=== PATIENT | male | born 1995 ===

== ENCOUNTER 2017-10-19 22:51 | Emergency (ER) | payer SELFPAY ==
[2017-10-19 23:06] VITALS: BP 114/81
--- NOTE | 2017-10-19 23:41 | XRay Report ---
FINAL REPORT PROCEDURE: XR HAND 2V RT TECHNIQUE: RIGHT hand radiographs, AP and lateral views. CPT 42479-JT HISTORY: laceration COMPARISON: No prior studies are available for comparison. FINDINGS: Fracture (s) and/or Dislocation(s): None . Alignment: Normal . Joint space(s): Normal . Soft tissues: Mild soft tissue swelling the index finger.. Bone mineralization: Normal . Foreign bodies: None . IMPRESSION: No acute fracture or dislocation. Soft tissue swelling over the index finger is noted..
[2017-10-20 01:02] LABS: Basophils # (Auto) 0.1 K/mm3 (0.0-0.1); Basophils % (Auto) 0.6 % (0.0-1.8); Eosinophils % (Auto) 0.3 % (0.0-4.3); Hematocrit 49.1 % (35.5-45.6); Hemoglobin 16.8 gm/dl (11.8-15.2); Lymphocytes # (Auto) 2.5 K/mm3 (1.2-5.4); Lymphocytes % (Auto) 25.8 % (13.4-35.0); Mean Corpuscular HGB Conc 34 % (32-34); Mean Corpuscular Hemoglobin 31 pg (28-32); Mean Corpuscular Volume 91 fl (84-94); Monocytes # (Auto) 0.8 K/mm3 (0.0-0.8); Platelet Count 301 K/mm3 (140-440); Red Blood Count 5.43 M/mm3 (3.65-5.03); Red Cell Distribution Width 13.7 % (13.2-15.2)
[2017-10-20 01:21] LABS: BUN/Creatinine Ratio 12; Blood Urea Nitrogen 14 mg/dL (9-20); Calcium 10.3 mg/dL (8.4-10.2); Hemolysis Index 20
[2017-10-20] MEDS ORDERED: XYLOCAINE 1% 20 mL INFILTRATI ONE (02:13)
--- NOTE | 2017-10-20 02:19 | Emergency Department Report ---
ED Upper Extremity Inj HPI - General Chief Complaint: Extremity Injury, Upper Stated Complaint: CUT FINGER Time Seen by Provider: 10/20/17 00:46 Source: patient Mode of arrival: Ambulatory Limitations: No Limitations - History of Present Illness Initial Comments: 22-year-old male with no significant past medical history presents to the hospital with complaint of laceration to right index finger. Patient is right- hand dominant. He was cutting a piece of wood with a sharp knife. Knife slipped and he sustained a laceration to his index finger. Patient had a syncopal episode after the laceration and thinks she lost a lot of blood. He complains of 9/10 right hand pain at this time. He denies chest pain, shortness of breath, neck pain, or headache. - Related Data Allergies Allergy/AdvReac Type Severity Reaction Status Date / Time No Known Allergies Allergy Unverified 10/19/17 23:05 ED Review of Systems ROS: Stated complaint: CUT FINGER Other details as noted in HPI Comment: All other systems reviewed and negative ED Past Medical Hx - Past Medical History Previous Medical History?: No - Surgical History Past Surgical History?: No - Social History Smoking Status: Never Smoker Substance Use Type: None ED Physical Exam - General Limitations: No Limitations - Other Other exam information: General: No limitations Head exam: Atraumatic, normocephalic Eyes exam: Normal appearance, pupils equal reactive to light, extraocular movements intact ENT: Moist mucous membrane Neck exam: Normal inspection, full range of motion, no meningismus nontender Respiratory exam: Clear to auscultation bilateral, no wheezes, rales, crackles Cardiovascular: Normal rate and rhythm, normal heart sounds Abdomen: Soft, nondistended, and nontender, with normal bowel sounds, no rebound, or guarding Extremity: Pressure bandage to index finger of right hand Back: Normal Inspection, full range of motion, no tenderness Neurologic: Alert, oriented x3, cranial nerves intact, no motor or sensory deficit Psychiatric: normal affect, normal mood Skin: Warm, dry, intact ED Course Vital Signs 10/19/17 23:02 Temperature 98.7 F Pulse Rate 75 Respiratory 17 Rate Blood Pressure 114/81 O2 Sat by Pulse 99 Oximetry - Reevaluation(s) Reevaluation #1: 10/20/17 02:23 When I initially saw and evaluated patient and I informed him that I was waiting for his labs and x-ray results to come back and the plan was to have my physician dairy and food laboratory assistant suture the finger. I did not unwrap the finger to fully evaluated it because this he had a adequate pressure bandage. Plan was to a unwrap with the PAs so that it could be examined and sutured at the same time in case it began to bleed again. At this time the way into the ROM and patient is no longer there. I examined demographic information in a computer an effort to call patient to the hospital but there is not a valid phone number listed. Patient did not inform staff or nurse that he was leaving and he eloped from the department. ED Medical Decision Making - Lab Data Result diagrams: 10/20/17 00:47 10/20/17 00:47 Lab Results 10/20/17 10/20/17 Range/Units 00:47 00:47 WBC 9.5 (4.5-11.0) K/mm3 RBC 5.43 H (3.65-5.03) M/mm3 Hgb 16.8 H (11.8-15.2) gm/dl Hct 49.1 H (35.5-45.6) % MCV 91 (84-94) fl MCH 31 (28-32) pg MCHC 34 (32-34) % RDW 13.7 (13.2-15.2) % Plt Count 301 (140-440) K/mm3 Lymph % (Auto) 25.8 (13.4-35.0) % [place] % (Auto) 8.0 H (0.0-7.3) % Eos % (Auto) 0.3 (0.0-4.3) % Baso % (Auto) 0.6 (0.0-1.8) % Lymph # 2.5 (1.2-5.4) K/mm3 [place] # 0.8 (0.0-0.8) K/mm3 Eos # 0.0 (0.0-0.4) K/mm3 Baso # 0.1 (0.0-0.1) K/mm3 Seg Neutrophils % 65.3 (40.0-70.0) % Seg Neutrophils # 6.2 (1.8-7.7) K/mm3 Sodium 142 (137-145) mmol/L Potassium 4.6 (3.6-5.0) mmol/L Chloride 101.4 (98-107) mmol/L Carbon Dioxide 28 (22-30) mmol/L Anion Gap 17 mmol/L BUN 14 (9-20) mg/dL Creatinine 1.2 (0.8-1.5) mg/dL Estimated GFR > 60 ml/min BUN/Creatinine Ratio 12 % Glucose 93 (75-100) mg/dL Calcium 10.3 H (8.4-10.2) mg/dL - EKG Data -: EKG Interpreted by Me EKG shows normal: sinus rhythm, axis (qrs 82), QRS complexes (qrs 84), ST-T waves (no stemi/t waves inv) Rate: normal - Radiology Data Radiology results: report reviewed Read by radiologist Right hand X-ray: No foreign body or fracture. Soft tissue swelling noted. - Medical Decision Making Right index finger laceration I was unable to fully examine finger prior to elopement Pressure bandage was adequate in controlling bleeding Syncope Likely vasovagal Labs, EKG, and vital signs are unremarkable - Differential Diagnosis fracture, contusion, sprain, tendon injury, laceration Critical Care Time: No Critical care attestation.: If time is entered above; I have spent that time in minutes in the direct care of this critically ill patient, excluding procedure time. ED Disposition Clinical Impression: Laceration of right index finger, Vasovagal syncope Disposition: ELOPED Is pt being admited?: No Condition: Stable Time of Disposition: 02:27
== END 2017-10-20 02:00 | disposition left against medical advice (07) ==
LOC: ED 22:51
DX: S61.210A Laceration without foreign body of right index finger without damage to nail, initial encounter (principal); R55 Syncope and collapse; W26.0XXA Contact with knife, initial encounter; Y93.89 Activity, other specified; Y92.89 Other specified places as the place of occurrence of the external cause; Y99.8 Other external cause status
CPT/HCPCS: 36415; 80048; 85025; 93005; 93010; 99284